=== PATIENT | female | born 1965 | race Hispanic/Latino ===

== ENCOUNTER 2019-03-17 06:52 | Day surgery (SDC) | payer OTHER ==
[2019-03-14 13:26] LABS: BASOPHILS % (AUTO) 0.3 % (0.0-5.0); EOSINOPHILS % (AUTO) 1.6 % (0.0-8.0); HEMATOCRIT 42.6 % (36-48); LYMPHOCYTES % (AUTO) 31.8 % (21.0-51.0); MEAN CORPUSCULAR HEMOGLOBIN 28.9 pg (27.0-33.0); MEAN CORPUSCULAR HGB CONC 31.9 g/dL (32.0-36.0); MEAN CORPUSCULAR VOLUME 90.4 fL (79-99); MONOCYTES % (AUTO) 7.9 % (3.0-13.0); NEUTROPHILS % (AUTO) 58.3 % (40.0-77.0); PLATELET COUNT (AUTO) 268 K/uL (130-400); RED BLOOD CELL COUNT(AUTO) 4.71 MIL/uL (4.00-5.50); RED CELL DISTRIBUTION WIDTH 12.7 % (11.0-15.5)
[2019-03-14 13:33] LABS: CREATININE 0.5 mg/dL (0.5-1.5); POTASSIUM 4.2 mmol/L (3.5-5.1)
[2019-03-14 14:01] VITALS: BP 136/82
[~2019-03-17] VITALS: Ht 157.5 cm; Wt 67.3 kg
[2019-03-17] VITALS (17 sets, daily range): BP systolic 111–154; BP diastolic 77–94
[~2019-03-17 06:52] MED LIST: IBUP-2077 PO
[2019-03-17] MEDS ORDERED: LACTATED RINGERS 1000ML 1,000 ML IV ONE (08:18)
[2019-03-17] MEDS: CEFAZOLIN SODIUM 1 GM VIAL ONE ×2 (08:35→10:09)
--- NOTE | 2019-03-17 08:42 | NUR ---
POTENTIAL FOR INFECTION: SHAVED RIGHT KNEE / RIGHT LEG PER HERNESTO OVALLES, FOLLOWED BY WIPING WITH BRANDI: 2% CHLORHEXIDINE GLUCONATE CLOTH PATIENTS PRE-OP SKIN PREP.
[2019-03-17] MEDS ORDERED: LIDOCAINE PF 2% 5ML ABBOJECT ONE (09:04)
[2019-03-17] MEDS ORDERED: FENTANYL CITRATE PF 50 MCG/1 ML 2ML VIAL ONE (09:04)
[2019-03-17] MEDS ORDERED: PROPOFOL 10 MG/ML 20ML VIAL IV ONE (09:04)
[2019-03-17] MEDS ORDERED: ONDANSETRON HCL 4 MG/2 ML VIAL ONE (10:23)
[2019-03-17] MEDS ORDERED: KETOROLAC TROMETHAMINE 30MG/ML ONE (10:23)
[2019-03-17] MEDS ORDERED: DEXAMETHASONE SOD PHOSPHATE 4 MG/ML 1ML VIAL ONE (10:29)
[2019-03-17] MEDS ORDERED: DiphenhydrAMINE HCL 50 MG/ML VIAL ONE (10:29)
[2019-03-17] MEDS ORDERED: MEPERIDINE-PF 25 MG/ML SYG ONE (11:03)
[2019-03-17] MEDS ORDERED: CLIN300C3 PO (11:04)
[2019-03-17] MEDS ORDERED: ACET1TAB12 PO (11:04)
== END 2019-03-17 12:25 | disposition home or self-care (01) ==
LOC: DAH 06:52 → SUH 06:52
PROVIDERS: ATTEND Orthopaedic Surgery
DX: S83.206A Unspecified tear of unspecified meniscus, current injury, right knee, initial encounter (principal); X58.XXXA Exposure to other specified factors, initial encounter; Y93.89 Activity, other specified; Y92.89 Other specified places as the place of occurrence of the external cause; Y99.8 Other external cause status; M25.661 Stiffness of right knee, not elsewhere classified; M94.261 Chondromalacia, right knee; Z98.51 Tubal ligation status; Z90.49 Acquired absence of other specified parts of digestive tract; Z98.890 Other specified postprocedural states; Z79.899 Other long term (current) drug therapy; Z87.891 Personal history of nicotine dependence; Z82.49 Family history of ischemic heart disease and other diseases of the circulatory system; Z83.3 Family history of diabetes mellitus
CPT/HCPCS: 29881; 36415; 80048; 85025; A4215; A4221; A4222; A4223; A4606; A4649 ×2; A4663; A4930 ×2; A5120; A6223; A6260; J0690; J1100; J1200; J1885; J2001; J2175; J2405; J2704; J3010; J7120 ×2

== ENCOUNTER 2019-05-05 07:02 | Day surgery (SDC) | payer OTHER ==
[2019-05-02 10:42] LABS: BASOPHILS % (AUTO) 0.7 % (0.0-5.0); EOSINOPHILS % (AUTO) 2.4 % (0.0-8.0); HEMATOCRIT 40.8 % (36-48); LYMPHOCYTES % (AUTO) 34.8 % (21.0-51.0); MEAN CORPUSCULAR HEMOGLOBIN 29.1 pg (27.0-33.0); MEAN CORPUSCULAR HGB CONC 32.4 g/dL (32.0-36.0); MEAN CORPUSCULAR VOLUME 90.1 fL (79-99); MONOCYTES % (AUTO) 7.9 % (3.0-13.0); PLATELET COUNT (AUTO) 249 K/uL (130-400); RED BLOOD CELL COUNT(AUTO) 4.53 MIL/uL (4.00-5.50); RED CELL DISTRIBUTION WIDTH 12.6 % (11.0-15.5); WHITE BLOOD COUNT (AUTO) 5.4 K/uL (4.8-10.8)
[2019-05-02 10:55] VITALS: BP 128/80
[2019-05-02 11:00] LABS: CREATININE 0.6 mg/dL (0.5-1.5); POTASSIUM 4.3 mmol/L (3.5-5.1)
[~2019-05-05] VITALS: Ht 160 cm; Wt 67.5 kg
[2019-05-05] VITALS (18 sets, daily range): BP systolic 119–143; BP diastolic 70–100
[2019-05-05] MEDS: CEFAZOLIN SODIUM 1 GM VIAL IVP SCH ×2 (05:00→09:53)
[2019-05-05] MEDS ORDERED: LACTATED RINGERS 1000ML 1,000 ML IV ONE (07:38)
[2019-05-05] MEDS ORDERED: MIDAZOLAM HCL 1 MG/ML 2ML VIAL ONE (08:10)
[2019-05-05] MEDS ORDERED: LIDOCAINE PF 2% 5ML ABBOJECT ONE (08:10)
[2019-05-05] MEDS ORDERED: PROPOFOL 10 MG/ML 20ML VIAL IV ONE (08:11)
[2019-05-05] MEDS ORDERED: FENTANYL CITRATE PF 50 MCG/1 ML 2ML VIAL ONE ×2 (08:11→10:48)
[2019-05-05] MEDS ORDERED: DEXAMETHASONE SOD PHOSPHATE 4 MG/ML 1ML VIAL ONE (08:43)
[2019-05-05] MEDS ORDERED: ONDANSETRON HCL 4 MG/2 ML VIAL ONE (08:45)
[2019-05-05] MEDS ORDERED: KETOROLAC TROMETHAMINE 30MG/ML ONE (09:25)
[2019-05-05] MEDS ORDERED: ACET1TAB12 PO (09:32)
[2019-05-05] MEDS ORDERED: CEPH-578 PO (09:32)
[2019-05-05] MEDS ORDERED: MEPERIDINE-PF 25 MG/ML SYG ONE (10:09)
[2019-05-05] MEDS ORDERED: MORPHINE SULFATE 4 MG/1ML SYG ONE (10:10)
--- NOTE | 2019-05-05 10:50 | NUR ---
[place] TO SEE PT. PT COMPLAINING OF PAIN. ALEKSANDRA ORDERED FENTANYL 25 MCG IVP, THEN SEND PT TO DAY PT FOR FURTHER MONITORING. Addendum: 05/05/19 at 1058 by HERNANDEZ CASTRO RN RN Amended: Links added.
[2019-05-05] MEDS ORDERED: ACETAMINOPHEN-CODEINE 300/30MG TAB ONE (11:27)
[2019-05-05] MEDS ORDERED: ACETAMINOPHEN-CODEINE 300/30MG TAB PO SCH (11:30)
== END 2019-05-05 12:01 | disposition home or self-care (01) ==
LOC: DAH 07:02
PROVIDERS: ATTEND Orthopaedic Surgery
DX: S83.232A Complex tear of medial meniscus, current injury, left knee, initial encounter (principal); M94.262 Chondromalacia, left knee; M19.90 Unspecified osteoarthritis, unspecified site; Z90.49 Acquired absence of other specified parts of digestive tract; Z98.890 Other specified postprocedural states; Z79.899 Other long term (current) drug therapy; W19.XXXA Unspecified fall, initial encounter; Y93.89 Activity, other specified; Y92.69 Other specified industrial and construction area as the place of occurrence of the external cause; Y99.0 Civilian activity done for income or pay
CPT/HCPCS: 29881; 36415; 80048; 85025; A4213; A4215; A4221; A4222; A4223; A4606; A4649 ×2; A4663; A4930; A5120; A6223; J0690; J1100; J1885; J2001; J2175; J2250; J2270; J2405; J2704; J3010 ×2; J7120 ×2